=== PATIENT | female | born 1975 | race Caucasian/White ===

== ENCOUNTER 2023-06-03 03:05 | Emergency (ER) | payer BC, SELFPAY ==
[2023-06-03 03:11] VITALS: BP 127/92; PULSE 109; RESP 28; TEMP 36.1; O2SAT 98; BMI 24.7
[2023-06-03 03:26] LABS: Basophils # 0.1 10^3/uL (0.0-0.1); Basophils % 0.4 %; Eosinophils # 0.1 10^3/uL (0.0-0.8); Eosinophils % 0.7 %; Hematocrit 45.2 % (36-47); Lymphocytes # 0.8 10^3/uL (0.8-4.8); Lymphocytes % 5.5 %; Mean Corpuscular HGB Conc 34.3 g/dL (30-55); Mean Corpuscular Hemoglobin 28.6 pg (27-33); Mean Corpuscular Volume 83.4 fl (85-98); Mean Platelet Volume 8.8 fL (7.4-10.4); Monocytes # 0.8 10^3/uL (0.2-0.9); Neutrophils # 11.83 10^3/uL (1.8-7.7); Neutrophils % 87.1 %; Nucleated Red Blood Cells % 0 %; Platelet Count 313 10^3/cmm (157-399); Red Blood Count 5.42 10^6/uL (3.85-5.65); Red Cell Distribution Width 12.3 % (12.1-15.1); White Blood Count 13.58 10^3/uL (3.29-11.43)
[2023-06-03] MEDS: sodium chloride 0.9% 1,000 ML 999 ML IV (03:29)
[2023-06-03 03:41] VITALS: RESP 26; O2SAT 100
[2023-06-03] MEDS: morphine 4 mg/mL SDV 1 mL IVP (03:41)
[2023-06-03] MEDS: ondansetron 2 mg/ML SDV 2 mL 4 MG IVP (03:41)
[2023-06-03] MEDS: haloperidol inj 5 mg/mL INJ 1 mL 3 MG IVP (03:42)
[2023-06-03 03:44] LABS: Alanine Aminotransferase 20 U/L (0-33); Albumin Level 4.8 g/dL (3.5-5.2); Alkaline Phosphatase 63 U/L (35-105); Anion Gap 18.9 (5-19); Aspartate Amino Transferase 16 U/L (0-32); Blood Urea Nitrogen 16 mg/dL (6-20); Calcium 10.1 mg/dL (8.5-10.5); Carbon Dioxide 22 mmol/L (22-29); Chloride 103 mmol/L (98-107); Creatinine Clr Calc Pharmacy 82.8052; Globulin 2.9 g/dL (1.3-4.6); Glomerular Filtration Rate 88.6 mL/min (90-130); Glucose 114 mg/dL (65-115); HCG, Serum Qual Positive (Negative); Lipase 65 U/L (13-60); Osmolality Calculated 292 mOsm/kg (285-295); Potassium 3.9 mmol/L (3.5-5.1); Sodium 140 mmol/L (136-145); Total Protein 7.7 g/dL (6.6-8.7)
[2023-06-03 03:47] VITALS: BP 127/92; PULSE 97; RESP 20; O2SAT 99
[2023-06-03 04:21] VITALS: BP 93/52; PULSE 85; RESP 16; O2SAT 98
[2023-06-03 04:25] LABS: Add Urine Microscopic? NO; Charge for UA Resulting for Rev
[2023-06-03 04:26] LABS: Bilirubin Urine Neg (Negative); Blood Urine Neg (Negative); Glucose Urine UA Norm (Normal); Ketones Urine 1+ (Negative); Leukocyte Esterase Urine Negative (Negative); Nitrate Urine Negative (Negative); Protein Urine Neg (Negative); Sulfosalicylic Acid Urine Negative (Negative); Urine Appearance Clear (CLEAR); Urine Color Dark Yellow (Yellow); Urobilinogen Urine Neg (Negative); pH Urine 8 (5-7)
[2023-06-03 04:28] LABS: HCG Quantitative 2.15 mIU/mL
--- NOTE | 2023-06-03 04:31 | ED_ITS ---
HPI - Abdominal Pain 2 General: Chief Complaint: Abdominal Pain Stated Complaint: Lower Abd pain, N/V Time Seen by Provider: 06/03/23 03:20 History of Present Illness: 48-year-old female with a history of wha t sounds like cyclical vomiting. She presents with 12 or more hours of vomiting, generalized abdominal pain, and some diarrhea. She relates that she has been worked up for this in the past, and has been hospitalized on at least 1 occasion. She has seen GI, and was negative for inflammatory bowel disease, diverticulitis, infectious causes, etc. She has had upper and lower scopes. She has had celiac testing. All negative. She had been prescribed an antispasmodic and antiemetic for these occasions, and most of the time these help. For what ever reason, they were not helping at home and she continued to vomit with significant belly pain during episodes at home. She denies fever. She denies blood in the vomitus or stool. Associated Symptoms: Reports diarrhea, nausea and vomiting; Denies fever(s) Review of Systems 2 Const: Denies: fever(s) Card: Denies: chest pain Resp: Denies: dyspnea GI: Reports: abdominal pain, nausea, vomiting and diarrhea : Denies: flank pain or difficulty voiding Physical Exam 2 Const: COMMON NORMALS: no acute distress GENERAL APPEARANCE: cooperative; not ill appearing and not frail appearing HENMT: COMMON NORMALS: normocephalic, atraumatic and Normal external nose present HEAD & SCALP: normocephalic and atraumatic FACE & SINUS: normal facial exam and face symmetric NOSE: Normal external nose present Eye: COMMON NORMALS: Equal, round and reactive pupils present and EOMs intact bilaterally PUPIL: Yes Equal, round and reactive pupils present Neck/C-Spine: GENERAL: Yes trachea midline Chest: CHEST: Yes Symmetrical chest wall rise Resp: COMMON NORMALS: normal respiratory effort, No retractions, No use of accessory muscles and clear to auscultation bilaterally AUSCULTATION: clear to auscultation bilaterally Cardio: COMMON NORMALS: regular rate and regular rhythm RATE: regular rate RHYTHM: regular rhythm GI: COMMON NORMALS: Normal to inspection, nondistended, normoactive bowel sounds present PALPATION: Yes Tenderness to palpation present (GI) (Diffuse) Extremity: COMMON NORMALS: no pedal edema Neuro: ECTOR COMA SCALE: document GCS findings [place] coma scale eye opening: Spontaneous [place] coma scale verbal response: Orientated [place] coma scale motor response: Obey commands [place] coma scale total score: 15 S ENSORY EXAM: Yes extremities (intact) Psych: COMMON NORMALS: speech normal SPEECH: Yes normal speech Skin: COMMON NORMALS: no rashes or lesions noted GENERAL SKIN EXAM: no rashes or lesions noted Course 2 Vital Signs: Vital signs: Vital Signs Temperature 97.0 F L 06/03/23 03:11 Pulse Rate 90 06/03/23 05:13 Respiratory Rate 18 06/03/23 05:13 Blood Pressure 106/91 06/03/23 05:13 Pulse Oximetry 97 06/03/23 05:13 MDM - Abdominal Pain Medical Decision Making Patient improved after Zofran, Haldol, morphine here. No more vomiting. She has been up and walked to the bathroom. CBC shows a white blood cell count of 13.6, with a CRP of 3. BMP is normal. Liver enzymes are normal. hCG is read as positive, quantitative is 2.15. Urine is only positive for opiates which she was given here. Patient has had multiple imaging studies in the past without findings. She is improved, and wishes to go home. She will go home on oral disintegrating Zyprexa as Zofran ODT. She will take the Zyprexa scheduled for the next 36 hours. To return for worsening symptoms. Lab Data 06/03/23 03:11 06/03/23 03:11 Labs/Radiology: Laboratory Results WBC 13.58 10^3/uL (3.29-11.43) H 06/03/23 03:11 RBC 5.42 10^6/uL (3.85-5.65) 06/03/23 03:11 Hgb 15.50 g/dL (11.27-16.99) 06/03/23 03:11 Hct 45.2 % (36-47) 06/03/23 03:11 MCV 83.4 fl (85-98) L 06/03/23 03:11 MCH 28.6 pg (27-33) 06/03/23 03:11 MCHC 34.3 g/dL (30-55) 06/03/23 03:11 RDW 12.3 % (12.1-15.1) 06/03/23 03:11 Plt Count 313 10^3/cmm (157-399) 06/03/23 03:11 MPV 8.8 fL (7.4-10.4) 06/03/23 03:11 Neut % (Auto) 87.1 % 06/03/23 03:11 Lymph % (Auto) 5.5 % 06/03/23 03:11 [place] % (Auto) 6.0 % 06/03/23 03:11 Eos % (Auto) 0.7 % 06/03/23 03:11 Baso % (Auto) 0.4 % 06/03/23 03:11 Neut # (Auto) 11.83 10^3/uL (1.8-7.7) H 06/03/23 03:11 Lymph # (Auto) 0.8 10^3/uL (0.8-4.8) 06/03/23 03:11 [place] # (Auto) 0.8 10^3/uL (0.2-0.9) 06/03/23 03:11 Eos # (Auto) 0.1 10^3/uL (0.0-0.8) 06/03/23 03:11 Baso # (Auto) 0.1 10^3/uL (0.0-0.1) 06/03/23 03:11 Nucleated RBC % (auto) 0 % 06/03/23 03:11 Nucleated RBCs # 0.0 /100WBC 06/03/23 03:11 Sodium 140 mmol/L (136-145) 06/03/23 03:11 Potassium 3.9 mmol/L (3.5-5.1) 06/03/23 03:11 Chloride 103 mmol/L (98-107) 06/03/23 03:11 Carbon Dioxide 22 mmol/L (22-29) 06/03/23 03:11 Anion Gap 18.9 (5-19) 06/03/23 03:11 BUN 16 mg/dL (6-20) 06/03/23 03:11 Creatinine 0.7 mg/dL (0.5-0.9) 06/03/23 03:11 GFR Calculation 88.6 mL/min (90-130) L 06/03/23 03:11 Glucose 114 mg/dL (65-115) 06/03/23 03:11 Calculated Osmolality 292 mOsm/kg (285-295) 06/03/23 03:11 Calcium 10.1 mg/dL (8.5-10.5) 06/03/23 03:11 Total Bilirubin 1.0 mg/dL (0.15-1.2) 06/03/23 03:11 AST 16 U/L (0-32) 06/03/23 03:11 ALT 20 U/L (0-33) 06/03/23 03:11 Alkaline Phosphatase 63 U/L (35-105) 06/03/23 03:11 C-Reactive Protein 3.0 mg/L (0.0-4.9) 06/03/23 03:11 Total Protein 7.7 g/dL (6.6-8.7) 06/03/23 03:11 Albumin 4.8 g/dL (3.5-5.2) 06/03/23 03:11 Globulin 2.9 g/dL (1.3-4.6) 06/03/23 03:11 Lipase 65 U/L (13-60) H 06/03/23 03:11 HCG, Qual Positive (Negative) H 06/03/23 03:11 Ser , Semi-Qnt 2.15 mIU/mL 06/03/23 03:11 Urine Color Dark yellow (Yellow) 06/03/23 04:18 Urine Appearance Clear (CLEAR) 06/03/23 04:18 Urine pH 8 (5-7) H 06/03/23 04:18 Ur Specific [place] 1.020 (1.005-1.030) 06/03/23 04:18 Urine Protein Neg (Negative) 06/03/23 04:18 Urine Glucose (UA) Norm (Normal) 06/03/23 04:18 Urine Ketones 1+ (Negative) H 06/03/23 04:18 Urine Blood Neg (Negative) 06/03/23 04:18 Urine Nitrate Negative (Negative) 06/03/23 04:18 Urine Bilirubin Neg (Negative) 06/03/23 04:18 Prot Sulfosalicylic Acd Negative (Negative) 06/03/23 04:18 Urine Urobilinogen Neg mg/dL (Negative) 06/03/23 04:18 Ur Leukocyte Esterase Negative (Negative) 06/03/23 04:18 Urine Opiates Screen Positive ng/mL (Negative) H 06/03/23 04:18 Ur Barbiturates Screen Negative ng/mL (Negative) 06/03/23 04:18 Ur Phencyclidine Scrn Negative ng/mL (Negative) 06/03/23 04:18 Ur Amphetamines Screen Negative ng/mL (Negative) 06/03/23 04:18 U Benzodiazepines Scrn Negative ng/mL (Negative) 06/03/23 04:18 Urine Cocaine Screen Negative ng/mL (Negative) 06/03/23 04:18 U Marijuana (THC) Screen Negative ng/mL (Negative) 06/03/23 04:18 No radiology studies performed this visit Discharge Plan Discharge Patient Disposition: Home Clinical Impression: Hyperemesis Condition: Stable Prescriptions: New olanzapine 10 mg tablet,disintegrating 10 mg PO BID Qty: 20 0RF ondansetron 4 mg tablet,disintegrating 4 mg PO Q6H PRN (Reason: nausea and vomiting) Qty: 14 0RF Discharge Orders: Discharge ED (Routine); Ordered 06/03/23 Ordered By: Dalton Payton Patient Instructions: Opioid Safety, Pain Management, Vomiting - Adult Activity Restrictions/Additional Instructions: Take the olanzapine you were prescribed twice daily for the next 36 hours whether you feel nauseated or not. You may use it as needed following. You may use the other medication as needed for nausea. Follow a liquid diet for the first 24 hours, then add food as tolerated following. See your doctor next week. Return for fever, worsening pain, vomiting despite treatment, other concerning symptoms. Coding Level of Care Code ED [employer] [facility] Director for [facility] Uribe
[2023-06-03 04:35] LABS: Amphetamines Screen Urine Negative (Negative); Barbiturates Screen Urine Negative (Negative); Benzodiazepines Screen Urine Negative (Negative); Cocaine Screen Urine Negative (Negative); Opiate Screen Urine Positive (Negative); PCP Screen Urine Negative (Negative); THC Screen Urine Negative (Negative)
[2023-06-03 04:38] VITALS: BP 101/68; PULSE 85; RESP 20; O2SAT 98
[2023-06-03 05:13] VITALS: BP 106/91; PULSE 90; RESP 18; O2SAT 97
== END 2023-06-03 05:14 | disposition home or self-care (01) ==
PROVIDERS: Emergency Provider Emergency Medicine
DX: R11.10 Vomiting, unspecified (principal)
CPT/HCPCS: 80053; 80306; 81003; 83690; 84702; 84703; 85025; 86140; 96361; 96374; 96375; 99284; J1630; J2270; J2405; J7030